=== PATIENT | female | born 1955 | race Caucasian/White ===

== ENCOUNTER → 2017-10-23 | Outpatient (CLI) | payer OTHER | LOC: FIMAGING 10:01 | PROVIDERS: ATTEND Podiatrist Primary Podiatric Medicine | DX: M79.671 Pain in right foot (principal); M20.11 Hallux valgus (acquired), right foot; S93.144A Subluxation of metatarsophalangeal joint of right lesser toe(s), initial encounter; M19.071 Primary osteoarthritis, right ankle and foot; M65.9 Synovitis and tenosynovitis, unspecified; M71.571 Other bursitis, not elsewhere classified, right ankle and foot ==